=== PATIENT | female | born 1960 | race American Indian/Alaskan Native ===

== ENCOUNTER → 2021-04-17 | Outpatient (CLI) | payer BC ==
[~2021-04-17] MED LIST: CRUTCH USE; HYDMOR2 PO; ONDA8 PO
== END | disposition home or self-care (01) ==
LOC: LAB SHORT 09:24
DX: N39.0 Urinary tract infection, site not specified (principal)
CPT/HCPCS: 87077; 87086; 87186

== ENCOUNTER 2021-06-08 21:19 | Emergency (ER) | payer BC ==
[~2021-06-08] VITALS: Ht 162.6 cm; Wt 81.7 kg
== END 2021-06-08 23:26 | disposition home or self-care (01) ==
LOC: ER 21:19
DX: S01.01XA Laceration without foreign body of scalp, initial encounter (principal); I10 Essential (primary) hypertension; Z88.5 Allergy status to narcotic agent; Z79.899 Other long term (current) drug therapy; W19.XXXA Unspecified fall, initial encounter
CPT/HCPCS: 12002; 99282